=== PATIENT | male | born 1990 | race Caucasian/White ===

== ENCOUNTER 2022-06-14 14:31 | Emergency (ER) | payer BC, MEDICAID ==
[~2022-06-14] VITALS: Ht 154.9 cm; Wt 80.3 kg
[2022-06-14 15:30] VITALS: BP 139/97
--- NOTE | 2022-06-14 15:30 | NUR ---
BIB SELF C/O 12/23 LEFT MIDDLE, RING FINGER PAIN X 3 DAYS. PMH: HEAD INJURY & SURGERY 3 YEARS AGO
[2022-06-14] MEDS ORDERED: NAPR-54 PO (18:43)
[2022-06-14] MEDS ORDERED: CEPH-588 PO (18:43)
[2022-06-14 18:45] VITALS: BP 139/97
--- NOTE | 2022-06-14 18:45 | NUR ---
Patient discharged with v/s stable. Written and verbal after care instructions given and explained. Patient alert, oriented and verbalized understanding of instructions. Ambulatory with steady gait. All questions addressed prior to discharge. ID band removed. Patient advised to follow up with PMD. Rx of KEFLEX& NAPROSYN given. Patient educated on indication of medication including possible reaction and side effects. Opportunity to ask questions provided and answered.
== END 2022-06-14 18:45 | disposition home or self-care (01) ==
LOC: MED 14:31
DX: L03.012 Cellulitis of left finger (principal); Z79.899 Other long term (current) drug therapy
CPT/HCPCS: 99283